=== PATIENT | female | born 1935 | race African-American/Black ===

== ENCOUNTER 2018-03-31 14:33 | Inpatient (IN) | payer MEDICAID ==
[~2018-03-31] VITALS: Ht 165.1 cm; Wt 119.7 kg
[2018-03-31] MEDS ORDERED: GABA-531 PO (16:00)
[2018-03-31] MEDS ORDERED: HYDROCODONE/ACETAMINOPHEN 5/325MG TABLET PO ONE (16:00)
[2018-03-31] MEDS ORDERED: ATOR20TA65 PO (16:01)
[2018-03-31] MEDS ORDERED: ALD2525 PO (16:01)
[2018-03-31] MEDS ORDERED: FURO40TA5 PO (16:01)
[2018-03-31] MEDS ORDERED: LOSA100T14 PO (16:02)
[2018-03-31] MEDS ORDERED: METF-816 PO (16:02)
[2018-03-31] MEDS ORDERED: ACET-2708 PO (16:02)
[2018-03-31] MEDS ORDERED: CALC-3 PO (16:03)
[2018-03-31 16:17] LABS: HEMATOCRIT. 42.4 % (36.0-48.0); LYMPHOCYTES % 27.3 % (20.0-50.0); MEAN CORPUSCULAR HEMOGLOBIN 29.9 pg (28.0-32.0); MEAN CORPUSCULAR VOLUME 90.5 fL (81.0-99.0); MEAN PLATELET VOLUME 8.6 fl (7.4-10.4); MONOCYTES % 6.9 % (2.0-8.0); NEUTROPHILS % 63.8 % (40.0-76.0); PLATELET 279 x1000/uL (130-400); RED BLOOD CELL COUNT 4.69 mill/uL (4.2-5.4); RED CELL DISTRIBUTION WIDTH 13.9 % (11.6-14.6)
[2018-03-31 16:22] LABS: CHLORIDE 95 mEq/L (98-107)
[2018-03-31 16:24] LABS: CLARITY URINE CLEAR (CLEAR); COLOR URINE YELLOW (YELLOW); INR 1.1; KETONES URINE NEGATIVE (NEGATIVE); LEUKOCYTE ESTERASE URINE 2+ (NEGATIVE); NITRITE URINE NEGATIVE (NEGATIVE); OCCULT BLOOD URINE NEGATIVE (NEGATIVE); PROTEIN URINE NEGATIVE (NEGATIVE); PROTHROMBIN TIME 10.9 sec (9.1-11.1); SPECIFIC GRAVITY URINE 1.009 (1.005-1.030); UROBILINOGEN URINE 0.2 E.U./dL (0.2-1.0)
[2018-03-31 16:53] LABS: D-DIMER 0.76 mg/L FEU (<0.50); PARTIAL THROMBOPLASTIN TIME 25.4 sec (23.4-31.0)
[2018-03-31] MEDS ORDERED: CEFTRIAXONE 1 G PREMIX 50 ML IV ONE (17:15)
[2018-03-31] MEDS ORDERED: ASPIRIN 81MG TABLET PO ONE (17:15)
[2018-03-31] MEDS ORDERED: IOHEXOL-350 100 ML BOTTLE ONE (17:53)
[2018-03-31] MEDS ORDERED: ONDANSETRON HCL 4MG/2ML INJ IV PRN (20:00)
[2018-03-31] MEDS ORDERED: CLONIDINE 0.1MG TABLET PO PRN (20:00)
[2018-03-31] MEDS ORDERED: GUAIFENESIN 200MG/10ML SUGAR FREE UDC PO PRN (20:00)
[2018-03-31] MEDS ORDERED: DOCUSATE SODIUM 100MG CAPSULE PO PRN (20:00)
[2018-03-31] MEDS ORDERED: IPRATROPIUM/ALBUTEROL 0.5-3(2.5)MG/3ML NEB INH PRN (20:00)
[2018-03-31] MEDS ORDERED: DIPHENHYDRAMINE 50MG/ML VIAL IV PRN (20:00)
[2018-03-31] MEDS ORDERED: HYDROMORPHONE HCL/PF 2MG/ML CPJ IV PRN (20:00)
[2018-03-31] MEDS ORDERED: ACETAMINOPHEN 325MG TABLET PO PRN (20:00)
[2018-03-31] MEDS ORDERED: HYDROCODONE/ACETAMINOPHEN 5/325MG TABLET PO PRN (20:00)
[2018-03-31] MEDS ORDERED: NA PHOS,M-B/NA PHOS,DI-BA ENEMA 118ML PR PRN (20:00)
[2018-03-31] MEDS ORDERED: LORAZEPAM 2MG/ML CPJ IV PRN (20:00)
[2018-03-31] MEDS ORDERED: MAGNESIUM/ALUMINUM HYDROXIDE/SIMETHICONE 30ML UDC PO PRN (20:00)
[2018-03-31] MEDS ORDERED: ENOXAPARIN 40MG/0.4ML SYR SUBCUT SCH (20:00)
[2018-03-31 21:30] VITALS: BP 168/83
[2018-03-31 22:00] VITALS: BP 168/83
[2018-03-31] MEDS ORDERED: LEVOFLOXACIN 500MG PREMIX 100 ML IV SCH (23:00)
[2018-04-01] VITALS: BP 138/75
[2018-04-01 04:03] VITALS: BP 114/66
[2018-04-01] MEDS ORDERED: ATOR20TA65 PO (04:28)
[2018-04-01] MEDS ORDERED: FURO40TA5 PO (04:28)
[2018-04-01] MEDS ORDERED: GABA-531 PO (04:28)
[2018-04-01] MEDS ORDERED: LOSA100T14 PO (04:28)
[2018-04-01] MEDS ORDERED: ACET-2853 PO (04:28)
[2018-04-01] MEDS ORDERED: METF-816 PO (04:28)
[2018-04-01] MEDS ORDERED: SPIR25TA6 PO (04:28)
[2018-04-01] MEDS ORDERED: CALC-3 PO (04:28)
[2018-04-01 07:29] LABS: CHLORIDE 96 mEq/L (98-107)
[2018-04-01 07:35] LABS: BASOPHILS % 0.7 % (0.0-2.0); EOSINOPHILS % 1.5 % (0.0-5.0); HEMATOCRIT. 39.1 % (36.0-48.0); HEMOGLOBIN. 12.8 g/dL (12.0-16.0); LYMPHOCYTES % 32.8 % (20.0-50.0); MEAN CORPUSCULAR HEMOGLOBIN 29.5 pg (28.0-32.0); MEAN CORPUSCULAR VOLUME 90.4 fL (81.0-99.0); MEAN PLATELET VOLUME 8.9 fl (7.4-10.4); MONOCYTES % 8.8 % (2.0-8.0); NEUTROPHILS % 56.2 % (40.0-76.0); PLATELET 245 x1000/uL (130-400); RED BLOOD CELL COUNT 4.33 mill/uL (4.2-5.4); RED CELL DISTRIBUTION WIDTH 14.1 % (11.6-14.6)
[2018-04-01 07:51] LABS: LDL CHOLESTEROL 48 mg/dL (5-100)
[2018-04-01 07:53] LABS: HDL CHOLESTEROL 53 mg/dL (40-59)
[2018-04-01 07:55] LABS: CHLORIDE 97 mEq/L (98-107)
[2018-04-01 08:00] VITALS: BP 121/58
[2018-04-01] MEDS ORDERED: DEXTROSE 50% WATER 50ML SYRINGE IV PRN (08:30)
[2018-04-01] MEDS: FUROSEMIDE 40MG/4ML VIAL IV SCH (08:46)
[2018-04-01] MEDS: ASPIRIN 81MG EC TABLET PO SCH (08:46)
[2018-04-01] MEDS: ENOXAPARIN 30MG/0.3ML SYR SUBCUT SCH ×2 (08:47→20:46)
[2018-04-01 12:00] VITALS: BP 139/65
[2018-04-01] MEDS: BLOOD SUGAR DIAGNOSTIC STRIP TEST SCH ×3 (12:36→20:46)
[2018-04-01] MEDS: LOSARTAN POTASSIUM 25 MG TABLET PO SCH (12:44)
[2018-04-01] MEDS: INSULIN LISPRO 100 UNITS/ML SUBCUT SCH ×3 (12:46→20:45)
[2018-04-01 16:00] VITALS: BP 148/83
[2018-04-01 20:00] VITALS: BP 117/66
[2018-04-01] MEDS: CARVEDILOL 3.125 MG TABLET PO SCH (20:47)
[2018-04-01] MEDS: LEVOFLOXACIN 500MG PREMIX 100 ML IV SCH (22:30)
[2018-04-02] VITALS: BP 148/72
[2018-04-02 04:00] VITALS: BP 138/69
[2018-04-02 07:08] LABS: BASOPHILS % 0.5 % (0.0-2.0); EOSINOPHILS % 1.7 % (0.0-5.0); HEMATOCRIT. 38.9 % (36.0-48.0); LYMPHOCYTES % 35.6 % (20.0-50.0); MEAN CORPUSCULAR HEMOGLOBIN 30.2 pg (28.0-32.0); MEAN PLATELET VOLUME 8.5 fl (7.4-10.4); MONOCYTES % 10.1 % (2.0-8.0); NEUTROPHILS % 52.1 % (40.0-76.0); PLATELET 241 x1000/uL (130-400); RED BLOOD CELL COUNT 4.31 mill/uL (4.2-5.4)
[2018-04-02] MEDS: BLOOD SUGAR DIAGNOSTIC STRIP TEST SCH ×4 (07:20→21:37)
[2018-04-02 08:36] VITALS: BP 120/74
[2018-04-02] MEDS: LOSARTAN POTASSIUM 25 MG TABLET PO SCH (08:56)
[2018-04-02] MEDS: FUROSEMIDE 40MG/4ML VIAL IV SCH (08:56)
[2018-04-02] MEDS: ASPIRIN 81MG EC TABLET PO SCH (08:56)
[2018-04-02] MEDS: CARVEDILOL 3.125 MG TABLET PO SCH ×2 (08:56→21:29)
[2018-04-02] MEDS: ENOXAPARIN 30MG/0.3ML SYR SUBCUT SCH ×2 (08:57→21:27)
[2018-04-02] MEDS: INSULIN LISPRO 100 UNITS/ML SUBCUT SCH ×4 (09:04→21:36)
[2018-04-02 09:10] LABS: CHLORIDE 98 mEq/L (98-107)
[2018-04-02 12:52] VITALS: BP 132/81
[2018-04-02 17:39] VITALS: BP 117/58
[2018-04-02 20:00] VITALS: BP 144/74
[2018-04-02] MEDS: LEVOFLOXACIN 500MG PREMIX 100 ML IV SCH (21:39)
[2018-04-03] VITALS: BP 149/72
== END 2018-04-03 01:35 | disposition home or self-care (01) | DRG 133 ==
LOC: ER 14:33 → 6WST 17:54 → UNDOADMIN 17:54 → EDBD 17:54 → EDBEDREQ 17:56 → EDBEDREQTM 17:56 → ENRESERV 20:27
PROVIDERS: ADMIT Internal Medicine; ATTEND Internal Medicine
DX: J96.00 Acute respiratory failure, unspecified whether with hypoxia or hypercapnia (principal); I50.23 Acute on chronic systolic (congestive) heart failure; I42.0 Dilated cardiomyopathy; I27.20 Pulmonary hypertension, unspecified; E11.9 Type 2 diabetes mellitus without complications; E78.5 Hyperlipidemia, unspecified; I11.0 Hypertensive heart disease with heart failure; I25.10 Atherosclerotic heart disease of native coronary artery without angina pectoris; Z82.49 Family history of ischemic heart disease and other diseases of the circulatory system; Z95.810 Presence of automatic (implantable) cardiac defibrillator; Z79.84 Long term (current) use of oral hypoglycemic drugs; Z79.899 Other long term (current) drug therapy
CPT/HCPCS: 36415; 71045; 71275; 80048; 80053; 80061; 80162; 81003; 82962; 83690; 83735; 83880; 84439; 84443; 84484; 85025; 85379; 85610; 85730; 87040; 93005; 93306; 99285; J0696; J1650; J1815; J1940; J1956; J7040; Q9967